=== PATIENT | female | born 1940 | race Caucasian/White ===

== ENCOUNTER → 2024-02-12 | Outpatient (CLI) | payer OTHER, SELFPAY ==
[2024-02-12 11:55] LABS: B-Type Natriuretic Peptide 90 pg/mL (0-100)
[2024-02-19 14:21] LABS: Vitamin B1 (Thiamine)* 10 nmol/L (8-30)
== END | disposition home or self-care (01) ==
PROVIDERS: PCP Family Medicine; Referring Provider Physician Assistant; Visit Provider Physician Assistant
DX: R60.0 Localized edema (principal)
CPT/HCPCS: 36415; 83880; 84425

== ENCOUNTER → 2024-04-08 | Outpatient (CLI) | payer OTHER, SELFPAY ==
[2024-04-08 14:44] LABS: Anion Gap 9 (7-16); BUN/Creatinine Ratio 25 Ratio (12-20); Blood Urea Nitrogen 28 mg/dL (9-23); Calcium 9.8 mg/dL (8.3-10.6); Carbon Dioxide 25.1 mMol/L (20.0-31.0); Cardiac Risk Estimate 2.8 RATIO (3.7-5.6); Chloride 105 mMol/L (98-107); Cholesterol 124 mg/dL (132-200); Creatinine (Component) 1.1 mg/dL (0.6-1.3); Glucose 91 mg/dL (74-106); HDL Cholesterol 45 mg/dL (40-60); LDL Cholesterol,Calculated 58 mg/dL (0-130); Osmolality,Calculated 283 (275-295); Potassium 4.5 mMol/L (3.4-5.1); Sodium 139 mMol/L (136-145); Triglycerides 105 mg/dL (30-150); eGFR 50 See Note
== END | disposition home or self-care (01) ==
LOC: COPL 12:53
PROVIDERS: PCP Physician Assistant; Referring Provider Specialist; Visit Provider Specialist
DX: E03.9 Hypothyroidism, unspecified (principal); I10 Essential (primary) hypertension; I25.10 Atherosclerotic heart disease of native coronary artery without angina pectoris
CPT/HCPCS: 36415; 80048; 80061

== ENCOUNTER 2024-04-23 15:46 | Emergency (ER) | payer OTHER, SELFPAY ==
[2024-04-23 15:48] VITALS: BMI 28.8
[2024-04-23 16:01] VITALS: BP 166/72; PULSE 61; RESP 16; TEMP 36.6; O2SAT 98
--- NOTE | 2024-04-23 16:03 | EKG_ITS ---
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: : 1940 Requested By: Jsoé Miguel Baumann Order Number: [id number] Reading MD: José Miguel Baumann Measurements Intervals [place] Rate: 62 P: 63 LA: 186 QRS: -31 QRSD: 95 T: -14 QT: 414 QTc: 421 Interpretive Statements SINUS RHYTHM MARKED LEFT AXIS DEVIATION [QRS AXIS < -30] ANTEROSEPTAL MYOCARDIAL INFARCTION , OF INDETERMINATE AGE [40+ ms Q WAVE IN V1-V4] MODERATE T-WAVE ABNORMALITY, CONSIDER LATERAL ISCHEMIA [-0.1+ mV T WAVE IN I/aVL/V5/V6] MODERATE T-WAVE ABNORMALITY, CONSIDER INFERIOR ISCHEMIA [-0.1+ mV T WAVE IN II/aVF] Compared to ECG 11/04/2018 14:49:24 Left-axis deviation now present T-wave abnormality now present Possible ischemia now present Myocardial infarct finding still present /store/S0/[id number].pdf
--- NOTE | 2024-04-23 16:03 | XR_ITS ---
Examination: AP lateral chest 2 views TECHNIQUE: AP sitting lateral chest 2 views Exam date and time: April 23, 2024 1611 hours INDICATIONS: Chest pain shortness of breath today. FINDINGS: Normal heart size Accentuation basilar bronchovascular markings No lobar pneumonia Bilateral rib or shoulder arthroplasties Moderate thoracic spondylosis IMPRESSION: Mild basilar bronchitis pattern
--- NOTE | 2024-04-23 16:04 | EDRME_ITS ---
Rapid Medical Screening Exam [facility] Arrival date/time: 04/23/24 15:46 83-year-old female with a history of A-fib, hyperlipidemia, hypertension presents to the emergency room with a chief complaint of 6 out of 10 sternal chest pain that does not radiate. Patient states she was seen at her primary care providers and was sent to the emergency room due to an abnormal EKG. I have greeted and performed a focused initial assessment of this patient. A comprehensive ED assessment and evaluation of the patient, analysis of all test results, and completion of the medical decision making process will be conducted by additional ED providers. Chief Complaint: Shortness of Breath/Dyspnea Vital signs: Vital Signs Temperature 97.8 F 04/23/24 16:01 Pulse Rate 61 04/23/24 16:01 Respiratory Rate 16 04/23/24 16:01 Blood Pressure 166/72 H 04/23/24 16:01 Pulse Oximetry (%) 98 04/23/24 16:01 Oxygen Delivery Method Room Air 04/23/24 16:01 Vital signs reviewed by provider: Yes
[2024-04-23 16:40] LABS: Basophils # (Auto) 0.1 Thou/mm3 (0.0-0.2); Basophils % (Auto) 1 % (0-2.5); Eosinophils # (Auto) 0.2 Thou/mm3 (0.0-0.5); Eosinophils % (Auto) 4 % (0-10); Hematocrit 39.8 % (36.0-46.0); Hemoglobin 13.5 g/dL (12.0-16.0); Immature Granulocytes % (Auto) 0 % (0-0); Immature Granulocytes Auto 0.01 Thou/mm3 (0.00-0.00); Lymphocytes # (Auto) 1.9 Thou/mm3 (1.0-4.8); Lymphocytes % (Auto) 37 % (10-50); Mean Corpuscular HGB Conc 33.9 g/dl (31.0-37.0); Mean Corpuscular Hemoglobin 29.5 pg (25.0-35.0); Mean Corpuscular Volume 87 fL (80-100); Monocytes # (Auto) 0.6 Thou/mm3 (0.0-0.8); Monocytes % (Auto) 11 % (0-12); Neutrophils # (Auto) 2.5 Thou/mm3 (1.8-7.7); Neutrophils % (Auto) 48 % (37-80); Nucleated Red Blood Cell % 0 /100 WBC (0); Platelet Count 165 Thou/mm3 (140-440); RDW Standard Deviation 45.6 fL (36.4-46.3); Red Blood Count 4.58 Miln/mm3 (4.00-5.20); White Blood Count 5.3 Thou/mm3 (3.6-11.0)
[2024-04-23 17:03] LABS: Partial Thromboplastin Time 36.8 Seconds (22.0-36.0); Prothrombin Time 11.4 Seconds (9.0-12.2)
[2024-04-23 17:06] LABS: Alanine Aminotransferase 18 U/L (10-49); Albumin, Serum 4.6 gm/dL (3.4-4.8); Alkaline Phosphatase 52 U/L (46-116); Anion Gap 10 (7-16); Aspartate Amino Transferase 17 U/L (0-34); BUN/Creatinine Ratio 18 Ratio (12-20); Bilirubin,Total 1.2 mg/dL (0.3-1.2); Blood Urea Nitrogen 18 mg/dL (9-23); Calcium 9.6 mg/dL (8.3-10.6); Calcium (Corrected) 9.6 mg/dL (8.5-10.1); Carbon Dioxide 20.3 mMol/L (20.0-31.0); Chloride 111 mMol/L (98-107); Estimated Creatinine Clearance 34.3 mL/min (>60); Globulin 2.3 gm/dL (2.3-3.5); Glucose 84 mg/dL (74-106); Osmolality,Calculated 282 (275-295); Potassium 4.4 mMol/L (3.4-5.1); Sodium 141 mMol/L (136-145); Total Protein 6.9 gm/dL (5.7-8.2); Troponin I < 0.020 ng/mL (0.0-0.045); eGFR 56 See Note
[2024-04-23 17:12] LABS: B-Type Natriuretic Peptide 109 pg/mL (0-100)
[2024-04-23 17:33] LABS: Collection Type, Urine Clean Catch
[2024-04-23 17:50] LABS: Bilirubin,Urine Negative (Negative); Blood,Urine Negative (Negative); Clarity,Urine Clear (Clear/Hazy); Color,Urine Lt-Yellow (Lt Yel-Yel); Glucose, Urine Negative (Negative); Ketones,Urine Trace (Negative); Leukocyte Esterase,Urine Negative (Negative); Nitrite,Urine Negative (Negative); Protein,Urine Negative (Neg - Trace); RBC,Urine < 1 /hpf (0-3); Specific Gravity,Urine 1.022 (1.001-1.035); Squamous Epithelial Cell,Urine < 1 /hpf (0-5); Urobilinogen,Urine Negative mg/dL (0.0-1.0); WBC,Urine < 1 /hpf (0-5)
--- NOTE | 2024-04-23 18:14 | PD.EDSOB ---
ED SOB =RME/HPI General Chief Complaint: Shortness of Breath/Dyspnea Stated Complaint: SOB THIS AM, ABN EKG AT MD OFFICE Time Seen by Provider: 04/23/24 18:00 Arrival date/time: 04/23/24 15:46 RME / HPI RME / HPI Narrative: 04/23/24 15:46 83-year-old female with a history of A-fib, hyperlipidemia, hypertension presents to the emergency room with a chief complaint of 6 out of 10 sternal chest pain that does not radiate. Patient states she was seen at her primary care providers and was sent to the emergency room due to an abnormal EKG. I have greeted and performed a focused initial assessment of this patient. A comprehensive ED assessment and evaluation of the patient, analysis of all test results, and completion of the medical decision making process will be conducted by additional ED providers. This section includes all my notes and documentations, including HPI, PE, and ED course. Carlos Berumen MD HPI: 83yo female with a history of TIA, HTN, HLD, angina, aFib, asthma, GERD presents to the ED for a chief complaint of chest pain. Patient states she woke up having significant chest pain at 0420. She reports associated shortness of breath. She took 3 sublingual nitroglycerin without improvement. She went to her PCP's office and was sent over for evaluation. Patient states her pain has resolved since arrival to the ED. She denies any N/V or any other associated symptoms. No other complaints reported. ROS: All negative except as documented in HPI. Physical Exam: General: Alert and oriented. No acute distress when remaining still. Eyes: Conjunctivae and lids clear. ENT: No nasal congestion. Neck: Supple. Heart: RRR. Lungs: No respiratory distress. Good air movement. No rhonchi, wheezing, rales. Abdomen: Soft and nontender. Legs: No clubbing, cyanosis, edema. Skin: Warm and dry. Neuro: Alert and oriented X 3. I reviewed all diagnostic test results. My interpretation of the EKG is sinus rhythm with no acute ST?T changes, no change from 04/08/2019 EKG. My interpretation of the chest x-ray is no acute findings. Blood tests and urine tests unremarkable, including negative troponin X 2. At this point, diagnoses include probable musculoskeletal chest pain. She remained stable. Recommended more outpatient cardiac workup. Based on my best medical judgment, made decision no further evaluation or treatment indicated at this time. Patient understands and agrees to the discharge instructions customized and printed, see below. Discharge instructions from Dr. Berumen: 1. After extensive evaluation, you are not having a heart attack. Your EKG today in the doctor's office was abnormal because you had heart attack(s) in the past. But there is no change in your EKG from 1999. And the blood tests did not show heart attack today, with 2 negative troponin levels. 2. Your pain can be originating from the chest wall and not from an internal organ.? The chest wall has many joints and muscles between the ribs, so sprains and strains are common.??Possibly from other causes, such as underlying anxiety/nerves/stress. 3. Apply ice or heat if helpful.? Tylenol/ibuprofen as needed. 4. See a private doctor on 04/24/2024 for recheck and further care. To make sure there is no serious underlying heart condition, ask to help you get more tests for your heart that cannot be done here in the ER.? Such as Holter Monitor (cardiac monitoring at home from a day to even a month), heart stress test (on treadmill or with medication), echocardiogram (imaging of your heart structures), heart catherization (checking for blockages in your heart arteries), and a referral to see a Simplex Operator.? 5. Seek immediate medical care with worsening or with any concerns.?? Carlos Berumen MD Related Data Home Medications ?Medication ?Instructions ?Recorded ?Confirmed fluticasone propionate 50 1 spray intranasal QDAY #0 spry 12/07/13 04/17/21 mcg/actuation nasal spray,suspension (Flonase Allergy Relief) lovastatin 40 mg tablet 40 mg PO HS #0 tabs 12/07/13 04/17/21 pantoprazole 40 mg tablet,delayed 40 mg PO QDAY ##0 12/07/13 04/17/21 release (Protonix) pentosan polysulfate sodium 100 mg 100 mg PO BID #0 caps 12/07/13 04/17/21 capsule (Elmiron) timolol maleate 0.5 % eye drops 1 drp Both eyes BID ##0 12/07/13 04/17/21 cholecalciferol (vitamin D3) 50 2 tab PO QDAY #0 caps 10/04/14 04/17/21 mcg (2,000 unit) capsule (D3-2000) vit B complex 100 combo no.2 100 1 tab PO QDAY ##0 10/04/14 04/17/21 mg tablet,extended release (B-100 Complex ER) loratadine 10 mg tablet (Claritin) 10 mg PO QDAY #0 tabs 03/07/16 04/17/21 aspirin 81 mg chewable tablet 81 mg PO QDAY ##0 08/22/16 04/17/21 clopidogrel 75 mg tablet (Plavix) 75 mg PO HS #0 tabs 08/22/16 04/17/21 denosumab 60 mg/mL subcutaneous 60 mg IM UD PRN PER PROTOCOL ##0 08/22/16 04/08/19 syringe (Prolia) isosorbide mononitrate 60 mg 60 mg PO QDAY ##0 08/22/16 04/17/21 tablet,extended release 24 hr amlodipine 10 mg tablet 10 mg PO QDAY 04/17/21 04/17/21 Allergies Allergy/AdvReac Type Severity Reaction Status Date / Time adhesive tape Allergy Severe ALL KINDS/ Verified 04/23/24 15:50 ALL TYPES - RASH aspirin Allergy Severe UPSET Verified 04/23/24 15:50 STOMACH cefuroxime Allergy Severe Rash Verified 04/23/24 15:50 cephalexin Allergy Severe Rash Verified 04/23/24 15:50 ciprofloxacin Allergy Severe Rash Verified 04/23/24 15:50 gramicidin D Allergy Severe Rash Verified 04/23/24 15:50 ibuprofen Allergy Severe PANCREATITI Verified 04/23/24 15:50 S metronidazole Allergy Severe Rash Verified 04/23/24 15:50 neomycin Allergy Severe Rash Verified 04/23/24 15:50 Penicillins Allergy Severe Rash Verified 04/23/24 15:50 phenazopyridine Allergy Severe Rash Verified 04/23/24 15:50 polymyxin B Allergy Severe Rash Verified 04/23/24 15:50 ranitidine Allergy Severe Rash Verified 04/23/24 15:50 Sulfa (Sulfonamide Allergy Severe Rash Verified 04/23/24 15:50 Antibiotics) omeprazole Allergy Mild Rash Verified 04/23/24 15:50 terbinafine Allergy Mild rash Verified 04/23/24 15:50 SOAPCLEAN Allergy Severe Rash Uncoded 07/29/23 17:12 Tobacco Allergy Severe Rash Uncoded 07/29/23 17:12 HOUSEHOLD SUPPLIES AdvReac Severe Rash Uncoded 07/29/23 17:12 Review of Systems Review of Systems Systems Reviewed: All systems reviewed, normal except as documented Past Medical History Past Medical History NEUROLOGIC: Positive Neurological Disorders, Transient Ischemic Attacks (TIA) and Migraine; Negative Seizures CARDIAC: Positive Cardiac Disorders, Myocardial Infarction, Cardiac Arrhythmia, Angina, Heart Murmur, Hypercholesterolemia, Edema and Hypertension; Negative Congestive Heart Failure RESPIRATORY: Positive Asthma and Pneumonia; Negative Chronic Obstructive Pulmonary Disease (COPD) GASTROINTESTINAL: Positive Gastrointestinal Disorders, Pancreatitis, Diverticulitis, Ulcer and Gastroesophageal Reflux Disease GENITOURINARY: Positive Genitourinary Disorders; Negative Renal Disease REPRODUCTIVE: Positive Previous Pregnancies MUSCULOSKELETAL: Positive Musculoskeletal Disorders, Arthritis, Osteoporosis and Fractures ENT: Positive Cataracts, Glaucoma and Ear Infection ENDOCRINE: Negative Endocrine Disorders, Diabetes Mellitus Type 1 or Diabetes Mellitus Type 2 HEMATOLOGIC: Positive Blood Disorders and Anemia OTHER HISTORY: Positive Falls, Chicken Pox and Measles; Negative Autoimmune Disease, Developmental Delay or Anesthesia Reactions Family History FAMILY HISTORY: Positive Family Respiratory Disorders, Family Cardiac Disorders, Family Gastrointestinal Problems, Family Cancer and Family Surgery; Negative Family Psychiatric Problems or Family Anesthesia Reaction Surgical History SURGICAL: Positive Coronary Stent, Cardiac Catheterization, Eye Surgery, Tonsillectomy and Adenoidectomy Social History SMOKING STATUS: Never smoker SECOND HAND EXPOSURE: No SUBSTANCE USE: does not use ED Exam Narrative Physical exam: As noted in HPI. Course Course Course Narrative: CXR is ordered for determining the etiology of chest pain. Quality Measures none Orders Category Date Time Status EKG (ED ONLY) *Do not use* NOW Care 04/23/24 16:03 Completed EKG (ED ONLY) *Do not use* NOW Care 04/23/24 18:43 Completed EKG (ED Only) Stat Exams 04/23/24 16:03 Draft EKG (ED Only) Stat Exams 04/23/24 18:43 Draft XR chest 2V Stat Exams 04/23/24 16:03 Completed B-Type Natriuretic Peptide Stat Lab 04/23/24 16:28 Completed CBC Stat Lab 04/23/24 16:28 Completed Comprehensive Metabolic Panel Stat Lab 04/23/24 16:28 Completed Magnesium Stat Lab 04/23/24 16:28 Completed Partial Thromboplastin Time Stat Lab 04/23/24 16:28 Completed Prothrombin Time with INR Stat Lab 04/23/24 16:28 Completed Troponin I Stat Lab 04/23/24 16:28 Completed Troponin I Stat Lab 04/23/24 19:06 Completed Urinalysis Stat Lab 04/23/24 16:50 Completed Vital Signs Vital signs: Vital Signs Temperature 97.8 F 04/23/24 16:01 Pulse Rate 61 04/23/24 16:01 Respiratory Rate 16 04/23/24 16:01 Blood Pressure 166/72 H 04/23/24 16:01 Pulse Oximetry (%) 98 04/23/24 16:01 Oxygen Delivery Method Room Air 04/23/24 16:01 Shortness of Breath / Dyspnea MDM Narrative MDM Narrative:: Scribe Attestation: 04/23/24 Rosana Casarez am scribing for and in the presence of Dr. Berumen. Patient data External records reviewed:: [facility] previous records (Per chart review, patient has no relevant previous ED visits.) Clinical information provided by:: patient Social determinants that could affect healthcare access:: none Patient has the following chronic illnesses:: TIA, HTN, HLD, angina, aFib, asthma, GERD How is presenting disease/condition affected by chronic disease/condition?: caused by Evaluation data The following diagnostics were reviewed and interpreted by me:: lab results, radiology exam(s) and EKG tracing(s) (My interpretation of the EKG is: Sinus rhythm with nonspecific ST-T changes, no change from 04/08/2019 EKG. Carlos Berumen MD) Lab and/or radiology exams considered but not ordered:: none Interpretation Summary: Chest wall pain Medications / Prescriptions Medications or Prescriptions considered but not ordered:: none Medication administrations:: none Consultations Consultation(s) initiated? (list below): No Diagnosis Shortness of Breath Differential Diagnosis: congestive heart failure, community acquired pneumonia, asthma with exacerbation and pulmonary embolism Most likely diagnosis given after review of the tests above:: Chest pain musculoskeletal Admission Indicated Admission indicated?: not indicated Explain why admission is indicated or not indicated:: No criteria for admission. Admission Request Was there a request for admission?: No Disposition Plan Disposition Plan: Discharge Discharge Attestation Discharge Attestation: The patient and all family members were given an opportunity to ask questions and understood the discharge instructions. Discharge instructions specifically effects, indications for sooner follow up or return to the emergency department, and the expected course of current diagnosis. Patient condition: Stable Discharge Plan Plan Patient Disposition: HOME (Self Care) Prescriptions/Referrals Prescriptions/Med Rec: No Action Elmiron 100 MG capsule 100 mg PO BID Qty: 0 Patient Comments: take 1 hour before meal or 2 hrs after meals lovastatin 40 MG tablet 40 mg PO HS Qty: 0 pantoprazole [Protonix] 40 MG tablet,delayed release (DR/EC) 40 mg PO QDAY Qty: 0 Patient Comments: TO SUPPRESS [employer]IONS timolol maleate 75 DROP/BTL drops 1 drp Both eyes BID Qty: 0 fluticasone propionate [Flonase Allergy Relief] 50 mcg/actuation [place],Suspension 1 spray INTRANASAL QDAY Qty: 0 cholecalciferol (vitamin D3) [D3-2000] 2,000 UNIT capsule 2 tab PO QDAY Qty: 0 B-100 Complex 100 MG tablet extended release 1 tab PO QDAY Qty: 0 loratadine [Claritin] 10 MG tablet 10 mg PO QDAY Qty: 0 clopidogrel [Plavix] 75 MG tablet 75 mg PO HS Qty: 0 aspirin 81 MG tablet,chewable 81 mg PO QDAY Qty: 0 Prolia 60 MG/1 ML syringe 60 mg IM UD PRN (Reason: PER PROTOCOL) Qty: 0 isosorbide mononitrate 60 mg Tablet Extended Release 24 Hr 60 mg PO QDAY Qty: 0 amlodipine 10 mg Tablet 10 mg PO QDAY Referrals: Nazia Kohler PA-C [Primary Care Provider] - In 1 week Problem List Clinical Impression: Chest pain Patient/Caregiver Discharge Instructions Discharge Activity: activity as tolerated Education Materials: ED Chest Pain, Uncertain Cause Additional Instructions: Discharge instructions from Dr. Berumen: 1. After extensive evaluation, you are not having a heart attack. Your EKG today in the doctor's office was abnormal because you had heart attack(s) in the past. But there is no change in your EKG from 1999. And the blood tests did not show heart attack today, with 2 negative troponin levels. 2. Your pain can be originating from the chest wall and not from an internal organ.? The chest wall has many joints and muscles between the ribs, so sprains and strains are common.??Possibly from other causes, such as underlying anxiety/nerves/stress. 3. Apply ice or heat if helpful.? Tylenol/ibuprofen as needed. 4. See a private doctor on 04/24/2024 for recheck and further care. To make sure there is no serious underlying heart condition, ask to help you get more tests for your heart that cannot be done here in the ER.? Such as Holter Monitor (cardiac monitoring at home from a day to even a month), heart stress test (on treadmill or with medication), echocardiogram (imaging of your heart structures), heart catherization (checking for blockages in your heart arteries), and a referral to see a Simplex Operator.? 5. Seek immediate medical care with worsening or with any concerns.?? Print Language: Brazilian Stand Alone Forms: Cecilia Award Info., Patient Portal Info Letter
--- NOTE | 2024-04-23 18:43 | EKG_ITS ---
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1940 Requested By: Carlos Caba Order Number: [id number] Reading MD: Carlos Caba Measurements Intervals [place] Rate: 56 P: 69 [place]: 182 QRS: -34 QRSD: 102 T: 256 QT: 453 QTc: 438 Interpretive Statements SINUS BRADYCARDIA MARKED LEFT AXIS DEVIATION [QRS AXIS < -30] ANTERIOR MYOCARDIAL INFARCTION , OF INDETERMINATE AGE [40+ ms Q WAVE AND/OR ST/T ABNORMALITY IN V3/V4] MODERATE T-WAVE ABNORMALITY, CONSIDER INFERIOR ISCHEMIA [-0.1+ mV T WAVE IN II/aVF] Compared to ECG 04/23/2024 16:08:57 Sinus rhythm no longer present Myocardial infarct finding still present T-wave abnormality still present Possible ischemia still present /store/S0/[id number]/ecg/[id number].pdf
[2024-04-23 19:41] LABS: Troponin I < 0.020 ng/mL (0.0-0.045)
[2024-04-23 20:25] VITALS: BP 153/66; PULSE 69; RESP 18; TEMP 36.4; O2SAT 99
== END 2024-04-23 20:25 | disposition home or self-care (01) ==
PROVIDERS: Nurse Practitioner Family; Emergency Provider Emergency Medicine; PCP Physician Assistant
DX: R07.89 Other chest pain (principal); I10 Essential (primary) hypertension; E78.5 Hyperlipidemia, unspecified; I48.91 Unspecified atrial fibrillation; J45.909 Unspecified asthma, uncomplicated; K21.9 Gastro-esophageal reflux disease without esophagitis; Z86.73 Personal history of transient ischemic attack (TIA), and cerebral infarction without residual deficits; Z95.5 Presence of coronary angioplasty implant and graft
CPT/HCPCS: 36415; 71046; 80053; 81001; 83735; 83880; 84484; 85025; 85610; 85730; 93005; 99283

== ENCOUNTER → 2024-05-19 | Outpatient (CLI) | payer OTHER, SELFPAY ==
[2024-05-19 16:41] LABS: Basophils # (Auto) 0.1 Thou/mm3 (0.0-0.2); Basophils % (Auto) 1 % (0-2.5); Eosinophils # (Auto) 0.3 Thou/mm3 (0.0-0.5); Eosinophils % (Auto) 4 % (0-10); Hematocrit 36.5 % (36.0-46.0); Hemoglobin 12.2 g/dL (12.0-16.0); Immature Granulocytes % (Auto) 0 % (0-0); Immature Granulocytes Auto 0.01 Thou/mm3 (0.00-0.00); Lymphocytes % (Auto) 31 % (10-50); Mean Corpuscular HGB Conc 33.4 g/dl (31.0-37.0); Mean Corpuscular Hemoglobin 29.5 pg (25.0-35.0); Mean Corpuscular Volume 88 fL (80-100); Monocytes # (Auto) 0.6 Thou/mm3 (0.0-0.8); Monocytes % (Auto) 9 % (0-12); Neutrophils # (Auto) 3.5 Thou/mm3 (1.8-7.7); Neutrophils % (Auto) 55 % (37-80); Nucleated Red Blood Cell % 0 /100 WBC (0); Platelet Count 151 Thou/mm3 (140-440); RDW Standard Deviation 46.5 fL (36.4-46.3); Red Blood Count 4.14 Miln/mm3 (4.00-5.20); White Blood Count 6.4 Thou/mm3 (3.6-11.0)
[2024-05-19 17:10] LABS: Albumin, Serum 4.4 gm/dL (3.4-4.8); Anion Gap 8 (7-16); BUN/Creatinine Ratio 21 Ratio (12-20); Blood Urea Nitrogen 21 mg/dL (9-23); Calcium 9.1 mg/dL (8.3-10.6); Calcium (Corrected) 9.1 mg/dL (8.5-10.1); Carbon Dioxide 23.3 mMol/L (20.0-31.0); Chloride 110 mMol/L (98-107); Glucose 83 mg/dL (74-106); Iron 52 mcg/dL (50-170); Osmolality,Calculated 283 (275-295); Percent Iron Saturation 17 % (20-55); Phosphorous 3.9 mg/dL (2.4-5.1); Potassium 4.3 mMol/L (3.4-5.1); Sodium 141 mMol/L (136-145); Total Iron Binding Capacity 303 mcg/dL (250-425); Unsaturated Iron Binding 251 (225-295); eGFR 56 See Note
[2024-05-19 17:12] LABS: Vitamin D 25 Hydroxy Total 32.4 ng/mL (7.3-40.2)
== END | disposition home or self-care (01) ==
LOC: COPL 16:13
PROVIDERS: PCP Physician Assistant; Referring Provider Internal Medicine; Visit Provider Internal Medicine
DX: I12.9 Hypertensive chronic kidney disease with stage 1 through stage 4 chronic kidney disease, or unspecified chronic kidney disease (principal); N18.31 Chronic kidney disease, stage 3a; I25.10 Atherosclerotic heart disease of native coronary artery without angina pectoris; E21.3 Hyperparathyroidism, unspecified; H81.09 Meniere's disease, unspecified ear
CPT/HCPCS: 36415; 80069; 82306; 83540; 83550; 85025

== ENCOUNTER → 2024-06-22 | Outpatient (CLI) | payer OTHER, SELFPAY ==
[2024-06-22 12:17] LABS: Calcium 9.3 mg/dL (8.3-10.6)
[2024-06-22 12:27] LABS: Vitamin D 25 Hydroxy Total 31.6 ng/mL (7.3-40.2)
== END | disposition home or self-care (01) ==
LOC: COPL 11:37
PROVIDERS: PCP Family Medicine; Referring Provider Specialist; Visit Provider Physician Assistant
DX: M81.0 Age-related osteoporosis without current pathological fracture (principal)
CPT/HCPCS: 36415; 82306; 82310

== ENCOUNTER → 2024-06-25 | Outpatient (CLI) | payer OTHER, SELFPAY ==
[2024-06-25 13:27] LABS: Basophils % (Auto) 1 % (0-2.5); Eosinophils # (Auto) 0.3 Thou/mm3 (0.0-0.5); Eosinophils % (Auto) 5 % (0-10); Hematocrit 37.1 % (36.0-46.0); Hemoglobin 12.4 g/dL (12.0-16.0); Immature Granulocytes % (Auto) 0 % (0-0); Immature Granulocytes Auto 0.01 Thou/mm3 (0.00-0.00); Lymphocytes # (Auto) 1.9 Thou/mm3 (1.0-4.8); Lymphocytes % (Auto) 30 % (10-50); Mean Corpuscular HGB Conc 33.4 g/dl (31.0-37.0); Mean Corpuscular Hemoglobin 30.4 pg (25.0-35.0); Mean Corpuscular Volume 91 fL (80-100); Monocytes # (Auto) 0.7 Thou/mm3 (0.0-0.8); Monocytes % (Auto) 11 % (0-12); Neutrophils # (Auto) 3.4 Thou/mm3 (1.8-7.7); Neutrophils % (Auto) 54 % (37-80); Nucleated Red Blood Cell % 0 /100 WBC (0); Platelet Count 142 Thou/mm3 (140-440); RDW Standard Deviation 48.2 fL (36.4-46.3); Red Blood Count 4.08 Miln/mm3 (4.00-5.20); White Blood Count 6.2 Thou/mm3 (3.6-11.0)
== END | disposition home or self-care (01) ==
LOC: COPL 12:51
PROVIDERS: PCP Family Medicine; Referring Provider Physician Assistant; Visit Provider Physician Assistant
DX: Z00.00 Encounter for general adult medical examination without abnormal findings (principal); E78.5 Hyperlipidemia, unspecified; E55.9 Vitamin D deficiency, unspecified; E21.3 Hyperparathyroidism, unspecified; I12.9 Hypertensive chronic kidney disease with stage 1 through stage 4 chronic kidney disease, or unspecified chronic kidney disease; N18.30 Chronic kidney disease, stage 3 unspecified
CPT/HCPCS: 36415; 85025

== ENCOUNTER → 2024-06-30 | Outpatient (CLI) | payer OTHER, SELFPAY ==
[2024-07-06 07:07] LABS: Fecal Globin Result NOT DETECTED (NOT DETECTED)
== END | disposition home or self-care (01) ==
LOC: SLDO 12:15
PROVIDERS: Referring Provider Physician Assistant; Visit Provider Physician Assistant
DX: Z00.00 Encounter for general adult medical examination without abnormal findings (principal); I12.9 Hypertensive chronic kidney disease with stage 1 through stage 4 chronic kidney disease, or unspecified chronic kidney disease; N18.30 Chronic kidney disease, stage 3 unspecified; E78.5 Hyperlipidemia, unspecified; E55.9 Vitamin D deficiency, unspecified; E21.3 Hyperparathyroidism, unspecified
CPT/HCPCS: 82274; G0328

== ENCOUNTER → 2024-07-27 | Outpatient (CLI) | payer OTHER, SELFPAY ==
--- NOTE | 2024-07-27 10:00 | XR_ITS ---
Examination: Screening digital mammography, bilateral Computer aided detection 3-D breast Tomosynthesis, bilateral Date and time of exam: July 27, 2024 0934 hours Compared to mammograms dating to March 28, 2016 Indication: Screening Technique: Nonmagnified MLO, CC views of the breasts to been obtained, reconstructed from 3-D Tomosynthesis images. R2 computer aided detection program utilized for evaluation of suspicious masses and/or abnormal calcifications. 3-D Tomosynthesis images obtained. Findings: Scattered areas of fibroglandular density. Benign calcifications. Skin lesion right breast No interval suspicious masses Impression: BI-RADS category II: Benign Findings. Recommend 1 year follow-up mammogram.
[2024-07-27 11:21] LABS: Alanine Aminotransferase 20 U/L (10-49); Albumin, Serum 4.7 gm/dL (3.4-4.8); Alkaline Phosphatase 65 U/L (46-116); Anion Gap 10 (7-16); Aspartate Amino Transferase 29 U/L (0-34); BUN/Creatinine Ratio 18 Ratio (12-20); Bilirubin,Total 1.8 mg/dL (0.3-1.2); Blood Urea Nitrogen 20 mg/dL (9-23); Calcium 8.6 mg/dL (8.3-10.6); Calcium (Corrected) 8.6 mg/dL (8.5-10.1); Cardiac Risk Estimate 2.1 RATIO (3.7-5.6); Chloride 107 mMol/L (98-107); Cholesterol 89 mg/dL (132-200); Creatinine (Component) 1.1 mg/dL (0.6-1.3); Globulin 2.4 gm/dL (2.3-3.5); Glucose 91 mg/dL (74-106); HDL Cholesterol 42 mg/dL (40-60); LDL Cholesterol,Calculated 31 mg/dL (0-130); Osmolality,Calculated 287 (275-295); Potassium 4.4 mMol/L (3.4-5.1); Sodium 143 mMol/L (136-145); Total Protein 7.1 gm/dL (5.7-8.2); Triglycerides 81 mg/dL (30-150); eGFR 50 See Note
== END | disposition home or self-care (01) ==
LOC: CDIM 09:18 → COPL 09:47
PROVIDERS: Referring Provider Physician Assistant; Visit Provider Radiology Diagnostic Radiology
DX: Z12.31 Encounter for screening mammogram for malignant neoplasm of breast (principal); R92.8 Other abnormal and inconclusive findings on diagnostic imaging of breast; R92.323 Mammographic fibroglandular density, bilateral breasts; I10 Essential (primary) hypertension; E78.5 Hyperlipidemia, unspecified; N39.0 Urinary tract infection, site not specified
CPT/HCPCS: 36415; 77063; 77067; 80053; 80061; 87086

== ENCOUNTER → 2024-08-11 | Outpatient (CLI) | payer OTHER, SELFPAY ==
[2024-08-11 12:17] LABS: Collection Type, Urine Clean Catch
[2024-08-11 13:43] LABS: Bilirubin,Urine Negative (Negative); Blood,Urine Negative (Negative); Clarity,Urine Clear (Clear/Hazy); Color,Urine Lt-Yellow (Lt Yel-Yel); Culture Indicated,Urine Not Indicated; Glucose, Urine Negative (Negative); Ketones,Urine Negative (Negative); Leukocyte Esterase,Urine Negative (Negative); Nitrite,Urine Negative (Negative); Protein,Urine Negative (Neg - Trace); RBC,Urine 2 /hpf (0-3); Specific Gravity,Urine 1.014 (1.001-1.035); Squamous Epithelial Cell,Urine < 1 /hpf (0-5); Urobilinogen,Urine Negative mg/dL (0.0-1.0); WBC,Urine 1 /hpf (0-5)
== END | disposition home or self-care (01) ==
LOC: SLDO 12:08
PROVIDERS: Referring Provider Physician Assistant; Visit Provider Physician Assistant
DX: N39.0 Urinary tract infection, site not specified (principal)
CPT/HCPCS: 81001

== ENCOUNTER → 2024-10-07 | Outpatient (CLI) | payer OTHER, SELFPAY ==
[2024-10-07 11:49] LABS: Basophils # (Auto) 0.1 Thou/mm3 (0.0-0.2); Basophils % (Auto) 1 % (0-2.5); Eosinophils # (Auto) 0.2 Thou/mm3 (0.0-0.5); Eosinophils % (Auto) 3 % (0-10); Hematocrit 39.2 % (36.0-46.0); Hemoglobin 12.9 g/dL (12.0-16.0); Immature Granulocytes Auto 0.00 Thou/mm3 (0.00-0.00); Lymphocytes # (Auto) 1.6 Thou/mm3 (1.0-4.8); Lymphocytes % (Auto) 30 % (10-50); Mean Corpuscular HGB Conc 32.9 g/dl (31.0-37.0); Mean Corpuscular Hemoglobin 30.2 pg (25.0-35.0); Mean Corpuscular Volume 92 fL (80-100); Monocytes # (Auto) 0.6 Thou/mm3 (0.0-0.8); Monocytes % (Auto) 12 % (0-12); Neutrophils # (Auto) 2.8 Thou/mm3 (1.8-7.7); Neutrophils % (Auto) 54 % (37-80); Nucleated Red Blood Cell # 0.00 Thou/mm3 (0.00-0.00); Nucleated Red Blood Cell % 0 /100 WBC (0); Platelet Count 139 Thou/mm3 (140-440); RDW Standard Deviation 47.6 fL (36.4-46.3); Red Blood Count 4.27 Miln/mm3 (4.00-5.20); White Blood Count 5.3 Thou/mm3 (3.6-11.0)
[2024-10-07 12:08] LABS: Anion Gap 8 (7-16); BUN/Creatinine Ratio 17 Ratio (12-20); Blood Urea Nitrogen 17 mg/dL (9-23); Calcium 8.9 mg/dL (8.3-10.6); Carbon Dioxide 26.3 mMol/L (20.0-31.0); Cardiac Risk Estimate 2.5 RATIO (3.7-5.6); Chloride 108 mMol/L (98-107); Cholesterol 93 mg/dL (132-200); Creatinine (Component) 1.0 mg/dL (0.6-1.3); Glucose 94 mg/dL (74-106); HDL Cholesterol 37 mg/dL (40-60); LDL Cholesterol,Calculated 42 mg/dL (0-130); Osmolality,Calculated 284 (275-295); Potassium 4.4 mMol/L (3.4-5.1); Sodium 142 mMol/L (136-145); Triglycerides 72 mg/dL (30-150); eGFR 56 See Note
== END | disposition home or self-care (01) ==
LOC: COPL 11:08
PROVIDERS: PCP Family Medicine; Referring Provider Specialist; Visit Provider Specialist
DX: N18.9 Chronic kidney disease, unspecified (principal)
CPT/HCPCS: 36415; 80048; 80061; 85025

== ENCOUNTER → 2024-12-15 | Outpatient (CLI) | payer OTHER, SELFPAY ==
[2024-12-15 13:03] LABS: Collection Type, Urine Clean Catch
[2024-12-15 13:15] LABS: Basophils # (Auto) 0.0 Thou/mm3 (0.0-0.2); Basophils % (Auto) 1 % (0-2.5); Eosinophils # (Auto) 0.1 Thou/mm3 (0.0-0.5); Eosinophils % (Auto) 2 % (0-10); Hematocrit 37.5 % (36.0-46.0); Hemoglobin 12.6 g/dL (12.0-16.0); Immature Granulocytes Auto 0.02 Thou/mm3 (0.00-0.00); Lymphocytes # (Auto) 1.5 Thou/mm3 (1.0-4.8); Lymphocytes % (Auto) 30 % (10-50); Mean Corpuscular HGB Conc 33.6 g/dl (31.0-37.0); Mean Corpuscular Hemoglobin 30.6 pg (25.0-35.0); Mean Corpuscular Volume 91 fL (80-100); Monocytes # (Auto) 0.5 Thou/mm3 (0.0-0.8); Monocytes % (Auto) 11 % (0-12); Neutrophils # (Auto) 2.7 Thou/mm3 (1.8-7.7); Neutrophils % (Auto) 55 % (37-80); Nucleated Red Blood Cell # 0.00 Thou/mm3 (0.00-0.00); Nucleated Red Blood Cell % 0 /100 WBC (0); Platelet Count 133 Thou/mm3 (140-440); RDW Standard Deviation 47.8 fL (36.4-46.3); Red Blood Count 4.12 Miln/mm3 (4.00-5.20); White Blood Count 4.9 Thou/mm3 (3.6-11.0)
[2024-12-15 13:34] LABS: Parathyroid Hormone Intact 93.4 pg/ml (18.5-88.0)
[2024-12-15 13:35] LABS: Alanine Aminotransferase 18 U/L (10-49); Albumin, Serum 4.3 gm/dL (3.4-4.8); Albumin/Globulin Ratio 2.0 (1.2-2.2); Alkaline Phosphatase 66 U/L (46-116); Anion Gap 8 (7-16); Aspartate Amino Transferase 31 U/L (0-34); BUN/Creatinine Ratio 13 Ratio (12-20); Bilirubin,Total 1.5 mg/dL (0.3-1.2); Blood Urea Nitrogen 12 mg/dL (9-23); Calcium 9.5 mg/dL (8.3-10.6); Calcium (Corrected) 9.5 mg/dL (8.5-10.1); Carbon Dioxide 24.8 mMol/L (20.0-31.0); Cardiac Risk Estimate 2.0 RATIO (3.7-5.6); Chloride 108 mMol/L (98-107); Cholesterol 93 mg/dL (132-200); Creatinine (Component) 0.9 mg/dL (0.6-1.3); Globulin 2.1 gm/dL (2.3-3.5); Glucose 89 mg/dL (74-106); HDL Cholesterol 46 mg/dL (40-60); LDL Cholesterol,Calculated 30 mg/dL (0-130); Osmolality,Calculated 279 (275-295); Potassium 4.3 mMol/L (3.4-5.1); Sodium 141 mMol/L (136-145); Thyroid Stimulating Hormone 0.87 uIU/mL (0.55-4.78); Total Protein 6.4 gm/dL (5.7-8.2); Triglycerides 87 mg/dL (30-150); eGFR > 60 See Note
[2024-12-15 13:39] LABS: Bilirubin,Urine Negative (Negative); Blood,Urine Negative (Negative); Clarity,Urine Clear (Clear/Hazy); Color,Urine Yellow (Lt Yel-Yel); Culture Indicated,Urine Not Indicated; Glucose, Urine Negative (Negative); Ketones,Urine Negative (Negative); Leukocyte Esterase,Urine Negative (Negative); Nitrite,Urine Negative (Negative); PH,Urine 6.5 (5.0-7.0); Protein,Urine Negative (Neg - Trace); RBC,Urine 1 /hpf (0-3); Specific Gravity,Urine 1.014 (1.001-1.035); Squamous Epithelial Cell,Urine < 1 /hpf (0-5); Urobilinogen,Urine Negative mg/dL (0.0-1.0); WBC,Urine < 1 /hpf (0-5)
[2024-12-15 14:41] LABS: Vitamin B12 586 pg/mL (211-911); Vitamin D 25 Hydroxy Total 44.7 ng/mL (7.3-40.2)
== END | disposition home or self-care (01) ==
LOC: COPL 12:22
PROVIDERS: PCP Family Medicine; Referring Provider Physician Assistant; Visit Provider Physician Assistant
DX: Z00.00 Encounter for general adult medical examination without abnormal findings (principal); E78.5 Hyperlipidemia, unspecified; E55.9 Vitamin D deficiency, unspecified; E21.3 Hyperparathyroidism, unspecified; I10 Essential (primary) hypertension
CPT/HCPCS: 36415; 80053; 80061; 81001; 82306; 82607; 83970; 84443; 85025

== ENCOUNTER → 2024-12-24 | Outpatient (CLI) | payer OTHER, SELFPAY ==
[2024-12-24 15:18] LABS: Basophils # (Auto) 0.0 Thou/mm3 (0.0-0.2); Basophils % (Auto) 1 % (0-2.5); Eosinophils # (Auto) 0.1 Thou/mm3 (0.0-0.5); Eosinophils % (Auto) 2 % (0-10); Hematocrit 35.3 % (36.0-46.0); Hemoglobin 11.9 g/dL (12.0-16.0); Immature Granulocytes Auto 0.01 Thou/mm3 (0.00-0.00); Lymphocytes # (Auto) 2.0 Thou/mm3 (1.0-4.8); Lymphocytes % (Auto) 32 % (10-50); Mean Corpuscular HGB Conc 33.7 g/dl (31.0-37.0); Mean Corpuscular Hemoglobin 30.7 pg (25.0-35.0); Mean Corpuscular Volume 91 fL (80-100); Monocytes # (Auto) 0.8 Thou/mm3 (0.0-0.8); Monocytes % (Auto) 13 % (0-12); Neutrophils # (Auto) 3.2 Thou/mm3 (1.8-7.7); Neutrophils % (Auto) 52 % (37-80); Nucleated Red Blood Cell # 0.00 Thou/mm3 (0.00-0.00); Nucleated Red Blood Cell % 0 /100 WBC (0); Platelet Count 137 Thou/mm3 (140-440); RDW Standard Deviation 47.9 fL (36.4-46.3); Red Blood Count 3.88 Miln/mm3 (4.00-5.20); White Blood Count 6.1 Thou/mm3 (3.6-11.0)
[2024-12-24 15:29] LABS: Albumin, Serum 4.3 gm/dL (3.4-4.8); Anion Gap 9 (7-16); BUN/Creatinine Ratio 20 Ratio (12-20); Blood Urea Nitrogen 18 mg/dL (9-23); Calcium 9.4 mg/dL (8.3-10.6); Calcium (Corrected) 9.4 mg/dL (8.5-10.1); Carbon Dioxide 25.7 mMol/L (20.0-31.0); Chloride 104 mMol/L (98-107); Creatinine (Component) 0.9 mg/dL (0.6-1.3); Glucose 87 mg/dL (74-106); Osmolality,Calculated 278 (275-295); Phosphorous 4.7 mg/dL (2.4-5.1); Potassium 4.5 mMol/L (3.4-5.1); Sodium 139 mMol/L (136-145); eGFR > 60 See Note
[2024-12-24 15:31] LABS: Vitamin D 25 Hydroxy Total 42.5 ng/mL (7.3-40.2)
== END | disposition home or self-care (01) ==
LOC: COPL 13:48
PROVIDERS: PCP Family Medicine; Referring Provider Internal Medicine; Visit Provider Specialist
DX: M81.0 Age-related osteoporosis without current pathological fracture (principal); I12.9 Hypertensive chronic kidney disease with stage 1 through stage 4 chronic kidney disease, or unspecified chronic kidney disease; N18.31 Chronic kidney disease, stage 3a; I25.10 Atherosclerotic heart disease of native coronary artery without angina pectoris; E21.3 Hyperparathyroidism, unspecified; H81.09 Meniere's disease, unspecified ear
CPT/HCPCS: 36415; 80069; 82306; 85025

== ENCOUNTER → 2025-01-20 | Outpatient (CLI) | payer OTHER, SELFPAY ==
--- NOTE | 2025-01-20 15:01 | XR_ITS ---
Examination: Duplex scan of the lower extremity, unilateral right Date and time of exam: January 20, 2025, 1520 hours INDICATIONS: Right leg swelling and pain beginning 2 weeks ago Technique: Duplex scan of the extremity veins using B-mode/grayscale imaging and Doppler spectral analysis and color flow Attention is directed to internal echogenicity, compression and augmentation involving these veins, color flow assessment, spectral analysis Findings: Major deep venous structures in the extremity demonstrate normal course and caliber. There is no evidence of deep vein thrombosis. Normal color flow and spectral analysis Impression: Negative for DVT..
--- NOTE | 2025-01-20 15:01 | XR_ITS ---
EXAMINATION: Arterial Doppler unilateral right lower extremity Date and time: January 20, 2025, 1527 hours INDICATIONS: Right leg swelling and pain beginning 2 weeks ago TECHNIQUE AND FINDINGS: Arterial velocities calculated for right common femoral superficial femoral popliteal peroneal posterior tibial and dorsalis pedis arteries including calculation of ankle-brachial indices Triphasic flow involving common femoral and superficial femoral arteries, biphasic flow popliteal peroneal and posterior tibial arteries Normal ankle-brachial index 1.2 cm IMPRESSION: Negative for peripheral obstructive arterial disease
--- NOTE | 2025-01-20 15:12 | XR_ITS ---
Examination: Knee, right, 3 views Technique: Knee AP, lateral, oblique 3 views Date and time of exam: January 20, 2025, 1542 hours INDICATIONS: Right knee pain and swelling beginning 4 weeks ago, comparison December 19, 2006 FINDINGS: Severe osteopenia Advanced tricompartment osteoarthritis right knee Multiple ossified joint bodies including a 3.5 cm ossified body in the suprapatellar joint space right knee No fracture Impression: Advanced tricompartment osteoarthritis
--- NOTE | 2025-01-20 15:12 | XR_ITS ---
Examination: Foot, right, 3 views Technique: AP, oblique, lateral views foot, 3 views Date and time of exam: January 20, 2025, 1542 hours INDICATIONS: Right foot swelling beginning 4 weeks ago FINDINGS: Moderate osteopenia. Moderate hallux valgus bunion deformity with moderate osteoarthritis first metatarsophalangeal joint No fracture No cortical bone destruction IMPRESSION: Moderate hallux valgus bunion deformity Moderate osteoarthritis first metatarsophalangeal joint No cortical bone destruction
== END | disposition home or self-care (01) ==
PROVIDERS: PCP Physician Assistant; Referring Provider Physician Assistant; Visit Provider Physician Assistant
DX: M17.11 Unilateral primary osteoarthritis, right knee (principal); M20.11 Hallux valgus (acquired), right foot; M21.611 Bunion of right foot; M19.071 Primary osteoarthritis, right ankle and foot
CPT/HCPCS: 73562; 73630; 93926; 93971

== ENCOUNTER → 2025-02-18 | Outpatient (CLI) | payer OTHER, SELFPAY ==
--- NOTE | 2025-02-18 12:40 | XR_ITS ---
Examination: Bone densitometry Date and time of exam: February 18, 2025, 1311 hours INDICATIONS: Menopause age 54, history, personal osteoporosis Technique: Lumbar spine and hip total bone mineralization values of an calculated. Peak reference and age match control results have been displayed. Findings: Lumbar spine total bone mineralization is 1.255 gm/cm2. This is 1.9 standard deviations above peak reference. This is 4.8 standard deviations above age-matched controls. Hip total bone mineralization is 0.861 gm/cm2 This is 0.7 standard deviations below peak reference. This is 1.7 standard deviations above age-matched controls Impression: There is normal mineralization based on lumbar spine measurements. There is normal mineralization based on hip measurements Lumbar mineralization is increased 6.4% compared with May 23, 2022 Hip mineralization is increased 10.2% compared with May 23, 2022
== END | disposition home or self-care (01) ==
LOC: CDIM 12:50
PROVIDERS: Referring Provider Physician Assistant; Visit Provider Physician Assistant
DX: M85.89 Other specified disorders of bone density and structure, multiple sites (principal)
CPT/HCPCS: 77080